=== PATIENT | male | born 1970 | race American Indian/Alaskan Native ===

== ENCOUNTER 2019-04-26 11:31 | Emergency (ER) | payer MEDICARE ==
--- NOTE | 2019-04-26 11:46 | Event Note ---
ED Screening Note Date of service: 04/26/19 Time: 11:43 ED Screening Note: This is a 48 y.o. M. that presents to the ER with suicidal thoughts and hearing voices. Reports having a plan to shot himself. PMH of schizoaffective disorder Current smoker This initial assessment/diagnostic orders/clinical plan/treatment(s) is/are subject to change based on patients health status, clinical progression and re- assessment by fellow clinical providers in the ED. Further treatment and workup at subsequent clinical providers discretion. Patient/guardian urged not to elope from the ED as their condition may be serious if not clinically assessed and managed. Initial orders include: Labs Main ED for further evaluation
[2019-04-26 12:15] LABS: Bilirubin,Urine NEG (Negative); Blood,Urine NEG (Negative); Color,Urine Yellow (Yellow); Mucus,Urine 3+ /HPF
[2019-04-26 12:22] LABS: Basophils % (Auto) 0.4 % (0.0-1.8); Eosinophils % (Auto) 0.4 % (0.0-4.3); Hematocrit 45.6 % (35.5-45.6); Hemoglobin 14.8 gm/dl (11.8-15.2); Lymphocytes # (Auto) 1.3 K/mm3 (1.2-5.4); Lymphocytes % (Auto) 25.7 % (13.4-35.0); Mean Corpuscular HGB Conc 32 % (32-34); Mean Corpuscular Volume 76 fl (84-94); Monocytes # (Auto) 0.4 K/mm3 (0.0-0.8); Monocytes % (Auto) 8.2 % (0.0-7.3); Platelet Count 225 K/mm3 (140-440); Red Blood Count 5.98 M/mm3 (3.65-5.03); Red Cell Distribution Width 16.8 % (13.2-15.2)
[2019-04-26 12:23] LABS: Amphetamine Screen,Urine PRESUMPTIVE NEGATIVE; Methadone Screen,Urine PRESUMPTIVE NEGATIVE; Opiate Screen,Urine PRESUMPTIVE NEGATIVE
[2019-04-26 12:37] LABS: BUN/Creatinine Ratio 15; Blood Urea Nitrogen 16 mg/dL (9-20); Calcium 9.2 mg/dL (8.4-10.2); Hemolysis Index 6
[2019-04-26 12:39] LABS: Benzodiazepines Screen,Urine PRESUMPTIVE POSITIVE; Cannabinoid Screen,Urine PRESUMPTIVE POSITIVE; Cocaine Screen,Urine PRESUMPTIVE POSITIVE
--- NOTE | 2019-04-26 12:50 | Emergency Department Report ---
HPI - General Chief Complaint: Psych Time Seen by Provider: 04/26/19 11:43 - HPI HPI: [facility] The patient is a 48-year-old male presented with a chief complaint auditory hallucination and suicidal ideation. The patient states she has a history of schizoaffective disorder and has always heard voices even while taking medication. Patient states his auditory hallucinations worsened over the past month. The patient states over the past couple days he has had suicidal ideation. Patient states his plan was to obtain a firearm and shooting himself. Patient denies any attempts at harming himself recently Location: Mental state Duration: [See above] Quality: Suicidal Severity: [See above] Modifying factors: [see above] Context: [see above] Mode of transportation: [not driving] ED Past Medical Hx - Past Medical History Previous Medical History?: Yes Hx Psychiatric Treatment: Yes (schizoaffective disorder, bipolar disorder) - Surgical History Past Surgical History?: No Additional Surgical History: Herniorrhaphy - Family History Family history: no significant - Social History Smoking Status: Current Every Day Smoker (occasional) Substance Use Type: Alcohol (occasional), Cocaine (last used 3 days ago) ED Review of Systems ROS: Stated complaint: SI Other details as noted in HPI Constitutional: no symptoms reported Eyes: denies: eye pain ENT: denies: throat pain Respiratory: no symptoms reported Cardiovascular: denies: chest pain Endocrine: no symptoms reported Gastrointestinal: denies: abdominal pain Genitourinary: denies: dysuria Musculoskeletal: denies: back pain Neurological: denies: headache Psychiatric: auditory hallucinations, suicidal thoughts Physical Exam - Physical Exam Vital Signs: Vital Signs 04/26/19 11:43 Temperature 98.6 F Pulse Rate 102 H Respiratory 16 Rate Blood Pressure 122/88 O2 Sat by Pulse 98 Oximetry Physical Exam: GENERAL: The patient is well-developed well-nourished male lying on stretcher not appearing to be in acute distress. [] HEENT: Normocephalic. Atraumatic. Extraocular motions are intact. Patient has moist mucous membranes. NECK: Supple. Trachea midline CHEST/LUNGS: Clear to auscultation. There is no respiratory distress noted. HEART/CARDIOVASCULAR: Regular. There is no tachycardia. There is no gallop rub or murmur. ABDOMEN: Abdomen is soft, nontender. Patient has normal bowel sounds. There is no abdominal distention. SKIN: There is no rash. There is no edema. There is no diaphoresis. NEURO: The patient is awake, alert, and oriented. The patient is cooperative. The patient has normal speech MUSCULOSKELETAL: There is no evidence of acute injury. ED Course Vital Signs 04/26/19 11:43 Temperature 98.6 F Pulse Rate 102 H Respiratory 16 Rate Blood Pressure 122/88 O2 Sat by Pulse 98 Oximetry ED Medical Decision Making - Lab Data Result diagrams: 04/26/19 12:05 04/26/19 12:05 Laboratory Tests 04/26/19 04/26/19 04/26/19 11:57 11:57 12:05 WBC RBC Hgb Hct MCV MCH MCHC RDW Plt Count Lymph % (Auto) [place] % (Auto) Eos % (Auto) Baso % (Auto) Lymph # [place] # Eos # Baso # Seg Neutrophils % Seg Neutrophils # Sodium Potassium Chloride Carbon Dioxide Anion Gap BUN Creatinine Estimated GFR BUN/Creatinine Ratio Glucose Calcium Urine Color Yellow Urine Turbidity Clear Urine pH 5.0 Ur Specific [place] 1.032 H Urine Protein 30 mg/dl Urine Glucose (UA) Neg Urine Ketones Tr Urine Blood Neg Urine Nitrite Neg Urine Bilirubin Neg Urine Urobilinogen 2.0 Ur Leukocyte Esterase Tr Urine WBC (Auto) 15.0 H Urine RBC (Auto) 3.0 Urine Mucus 3+ Salicylates < 0.3 L Urine Opiates Screen Presumptive negative Urine Methadone Screen Presumptive negative Acetaminophen Ur Barbiturates Screen Presumptive negative Ur Phencyclidine Scrn Presumptive negative Ur Amphetamines Screen Presumptive negative U Benzodiazepines Scrn Presumptive positive Urine Cocaine Screen Presumptive positive U Marijuana (THC) Screen Presumptive positive Drugs of Abuse Note Disclamer Plasma/Serum Alcohol 04/26/19 04/26/19 04/26/19 12:05 12:05 12:05 WBC RBC Hgb Hct MCV MCH MCHC RDW Plt Count Lymph % (Auto) [place] % (Auto) Eos % (Auto) Baso % (Auto) Lymph # [place] # Eos # Baso # Seg Neutrophils % Seg Neutrophils # Sodium 138 Potassium 3.5 L Chloride 101.0 Carbon Dioxide 21 L Anion Gap 20 BUN 16 Creatinine 1.1 Estimated GFR > 60 BUN/Creatinine Ratio 15 Glucose 189 H Calcium 9.2 Urine Color Urine Turbidity Urine pH Ur Specific [place] Urine Protein Urine Glucose (UA) Urine Ketones Urine Blood Urine Nitrite Urine Bilirubin Urine Urobilinogen Ur Leukocyte Esterase Urine WBC (Auto) Urine RBC (Auto) Urine Mucus Salicylates Urine Opiates Screen Urine Methadone Screen Acetaminophen < 5.0 L Ur Barbiturates Screen Ur Phencyclidine Scrn Ur Amphetamines Screen U Benzodiazepines Scrn Urine Cocaine Screen U Marijuana (THC) Screen Drugs of Abuse Note Plasma/Serum Alcohol 0.06 04/26/19 12:05 WBC 4.9 RBC 5.98 H Hgb 14.8 Hct 45.6 MCV 76 L MCH 25 L MCHC 32 RDW 16.8 H Plt Count 225 Lymph % (Auto) 25.7 [place] % (Auto) 8.2 H Eos % (Auto) 0.4 Baso % (Auto) 0.4 Lymph # 1.3 [place] # 0.4 Eos # 0.0 Baso # 0.0 Seg Neutrophils % 65.3 Seg Neutrophils # 3.2 Sodium Potassium Chloride Carbon Dioxide Anion Gap BUN Creatinine Estimated GFR BUN/Creatinine Ratio Glucose Calcium Urine Color Urine Turbidity Urine pH Ur Specific [place] Urine Protein Urine Glucose (UA) Urine Ketones Urine Blood Urine Nitrite Urine Bilirubin Urine Urobilinogen Ur Leukocyte Esterase Urine WBC (Auto) Urine RBC (Auto) Urine Mucus Salicylates Urine Opiates Screen Urine Methadone Screen Acetaminophen Ur Barbiturates Screen Ur Phencyclidine Scrn Ur Amphetamines Screen U Benzodiazepines Scrn Urine Cocaine Screen U Marijuana (THC) Screen Drugs of Abuse Note Plasma/Serum Alcohol - Differential Diagnosis suicidal ideation, auditory hallucinations Critical care attestation.: If time is entered above; I have spent that time in minutes in the direct care of this critically ill patient, excluding procedure time. ED Disposition Clinical Impression: Suicidal ideation, Auditory hallucinations Disposition: DC/TX-65 PSY HOSP/PSY UNIT Is pt being admited?: No Does the pt Need Aspirin: No Condition: Serious Time of Disposition: 12:54 (awaiting acceptance)
[2019-04-26] MEDS ORDERED: K-DUR PO ONE (12:53)
[2019-04-26] MEDS ORDERED: LEVAQUIN PO SCH (13:00)
[2019-04-26 20:55] VITALS: BP 115/71
== END 2019-04-26 22:05 ==
LOC: ED 11:31 → EEVIPCON 11:31 → ED 22:05
DX: F25.9 Schizoaffective disorder, unspecified (principal); F31.9 Bipolar disorder, unspecified; R45.851 Suicidal ideations; F17.200 Nicotine dependence, unspecified, uncomplicated; F14.10 Cocaine abuse, uncomplicated
CPT/HCPCS: 36415; 80048; 80307; 80320; 81001; 85025; 87086; 99285; G0480

== ENCOUNTER 2019-07-30 10:43 | Emergency (ER) | payer MEDICARE ==
[2019-07-30 11:32] LABS: Basophils # (Auto) 0.1 K/mm3 (0.0-0.1); Basophils % (Auto) 0.9 % (0.0-1.8); Hematocrit 49.9 % (35.5-45.6); Hemoglobin 15.8 gm/dl (11.8-15.2); Lymphocytes # (Auto) 1.9 K/mm3 (1.2-5.4); Lymphocytes % (Auto) 19.8 % (13.4-35.0); Mean Corpuscular HGB Conc 32 % (32-34); Mean Corpuscular Volume 77 fl (84-94); Monocytes # (Auto) 0.7 K/mm3 (0.0-0.8); Monocytes % (Auto) 6.9 % (0.0-7.3); Platelet Count 202 K/mm3 (140-440); Red Blood Count 6.45 M/mm3 (3.65-5.03)
[2019-07-30 12:10] LABS: Bilirubin,Urine NEG (Negative); Blood,Urine SM (Negative); Color,Urine Straw (Yellow); Mucus,Urine FEW /HPF; Protein,Urine <15 mg/dL mg/dL (Negative); Urobilinogen,Urine < 2.0 mg/dL (<2.0); WBC,Urine < 1.0 /HPF (0.0-6.0)
[2019-07-30 12:16] LABS: BUN/Creatinine Ratio 14; Blood Urea Nitrogen 14 mg/dL (9-20); Calcium 9.9 mg/dL (8.4-10.2); Hemolysis Index 9
[2019-07-30 12:22] LABS: Amphetamine Screen,Urine PRESUMPTIVE NEGATIVE; Benzodiazepines Screen,Urine PRESUMPTIVE NEGATIVE; Cannabinoid Screen,Urine PRESUMPTIVE NEGATIVE; Methadone Screen,Urine PRESUMPTIVE NEGATIVE; Opiate Screen,Urine PRESUMPTIVE NEGATIVE
[2019-07-30 12:37] LABS: Cocaine Screen,Urine PRESUMPTIVE POSITIVE
[2019-07-30] MEDS ORDERED: ACETAMINOPHEN 325 MG TAB PO ONE (13:07)
--- NOTE | 2019-07-30 13:28 | Emergency Department Report ---
ED General Adult HPI - General Chief complaint: Psych Stated complaint: SI Time Seen by Provider: 07/30/19 11:17 Source: patient Mode of arrival: Ambulatory Limitations: No Limitations - History of Present Illness Initial comments: The Patient presents to the emergency department with a chief complaint of hearing voices. She states she has a history of schizophrenia and is taking his medications as prescribed. He states over the last couple of days the voices have been telling him to kill himself and last night he had a gun to his head. -: Gradual Severity scale (0 -10): 0 Consistency: constant Improves with: none Worsens with: none Associated Symptoms: denies other symptoms Treatments Prior to Arrival: none - Related Data Allergies Allergy/AdvReac Type Severity Reaction Status Date / Time No Known Allergies Allergy Unverified 04/26/19 11:32 ED Review of Systems ROS: Stated complaint: SI Other details as noted in HPI Constitutional: denies: chills, fever Eyes: denies: eye pain, eye discharge, vision change ENT: denies: ear pain, throat pain Respiratory: denies: cough, shortness of breath, wheezing Cardiovascular: denies: chest pain, palpitations Endocrine: no symptoms reported Gastrointestinal: denies: abdominal pain, nausea, diarrhea Genitourinary: denies: urgency, dysuria Musculoskeletal: denies: back pain, joint swelling, arthralgia Skin: denies: rash, lesions Neurological: denies: headache, weakness, paresthesias Psychiatric: suicidal thoughts. denies: anxiety, depression Hematological/Lymphatic: denies: easy bleeding, easy bruising ED Past Medical Hx - Past Medical History Previous Medical History?: Yes Hx Hypertension: Yes Hx Psychiatric Treatment: Yes (schizoaffective disorder, bipolar disorder) - Surgical History Past Surgical History?: Yes Additional Surgical History: Herniorrhaphy - Social History Smoking Status: Current Every Day Smoker Substance Use Type: Alcohol ED Physical Exam - General Limitations: No Limitations General appearance: alert, in no apparent distress - Head Head exam: Present: atraumatic, normocephalic - Eye Eye exam: Present: normal appearance, PERRL, EOMI - ENT ENT exam: Present: mucous membranes moist - Neck Neck exam: Present: normal inspection - Respiratory Respiratory exam: Present: normal lung sounds bilaterally. Absent: respiratory distress - Cardiovascular Cardiovascular Exam: Present: regular rate, normal rhythm. Absent: systolic murmur, diastolic murmur, rubs, gallop - GI/Abdominal GI/Abdominal exam: Present: soft, normal bowel sounds. Absent: distended, tenderness - Rectal Rectal exam: Present: deferred - Extremities Exam Extremities exam: Present: normal inspection - Back Exam Back exam: Present: normal inspection - Neurological Exam Neurological exam: Present: alert, oriented X3, CN II-XII intact. Absent: motor sensory deficit - Psychiatric Psychiatric exam: Present: normal affect, normal mood, suicidal ideation - Skin Skin exam: Present: warm, dry, intact, normal color. Absent: rash ED Course Vital Signs 07/30/19 07/30/19 07/30/19 10:53 11:24 11:25 Temperature 97.5 F L 98.4 F Pulse Rate 92 H 96 H Respiratory 16 17 17 Rate Blood Pressure 140/99 Blood Pressure 131/97 [Left] O2 Sat by Pulse 97 96 96 Oximetry ED Medical Decision Making - Lab Data Result diagrams: 07/30/19 11:14 07/30/19 11:14 1013 placed Medically cleared Critical care attestation.: If time is entered above; I have spent that time in minutes in the direct care of this critically ill patient, excluding procedure time. ED Disposition Clinical Impression: Suicidal behavior Disposition: DC/TX-65 PSY HOSP/PSY UNIT Is pt being admited?: No Does the pt Need Aspirin: No Condition: Stable
[2019-07-31 14:01] VITALS: BP 143/93
== END 2019-07-31 21:46 ==
LOC: EEVIPCON 10:43 → ED 10:43
DX: F25.9 Schizoaffective disorder, unspecified (principal); F31.9 Bipolar disorder, unspecified; I10 Essential (primary) hypertension; F17.200 Nicotine dependence, unspecified, uncomplicated
CPT/HCPCS: 36415; 80048; 80307; 80320; 81001; 85025; 99285; G0480

== ENCOUNTER 2019-10-22 07:46 | Emergency (ER) | payer MEDICARE ==
[2019-10-22 08:50] LABS: Basophils % (Auto) 0.5 % (0.0-1.8); Eosinophils % (Auto) 0.2 % (0.0-4.3); Hematocrit 46.8 % (35.5-45.6); Hemoglobin 14.8 gm/dl (11.8-15.2); Lymphocytes # (Auto) 1.4 K/mm3 (1.2-5.4); Lymphocytes % (Auto) 22.3 % (13.4-35.0); Mean Corpuscular HGB Conc 32 % (32-34); Mean Corpuscular Volume 77 fl (84-94); Monocytes # (Auto) 0.5 K/mm3 (0.0-0.8); Monocytes % (Auto) 7.9 % (0.0-7.3); Platelet Count 215 K/mm3 (140-440); Red Blood Count 6.07 M/mm3 (3.65-5.03); Red Cell Distribution Width 17.5 % (13.2-15.2)
[2019-10-22 09:09] LABS: BUN/Creatinine Ratio 17; Blood Urea Nitrogen 17 mg/dL (9-20); Calcium 9.4 mg/dL (8.4-10.2); Hemolysis Index 4
[2019-10-22] MEDS ORDERED: LISINOPRIL 20 MG TAB PO ONE (10:40)
--- NOTE | 2019-10-22 10:42 | Emergency Department Report ---
ED Psych HPI - General Chief Complaint: Psych Stated Complaint: SI IDEATION/HEARING VOICES Time Seen by Provider: 10/22/19 10:33 Source: patient Mode of arrival: Ambulatory - History of Present Illness Initial Comments: 49 YO AA male comes to ER with complaints of Auditory [place] with plan to shoot himself. He tells me he held a gun to his head. He told me the gun was with family - this is after he told me he had no local family. When asked to clarify - he stated it is with friends. I asked if it was at snf where he told me he lives and he said no. Pos psychomotor agitation- rocking and twirling thumbs. Cooperative Suppose to be on lisinopril, effexor, and seroquel- he is not taking them because he can not afford them. He last had them "wwkes ago." Pt lives in snf He is but he is estranged from his - he had no idea where she is He has 2 kids that live with his sister out of state. The kids are 14 and 16 His mother and father are Occ ETOH Pos cig PMH schizo- previous hosp and Suicide attempt; 1 y ago per pt HTN HLD PSH denies MD Complaint: suicidal ideation -: hour(s) Associated Psychiatric Symptoms: suicidal ideation History of same: Yes Quality: constant Improves With: none Worsens With: other (not taking meds) Context: not taking psychiatric Associated Symptoms: denies other symptoms Treatments Prior to Arrival: none If Self Harm: admits thoughts of, has plan, has acted on plan - Related Data Home Medications Medication Instructions Recorded Confirmed Last Taken Citalopram Hydrobromide [Celexa] 40 mg PO DAILY 07/30/19 07/30/19 Unknown Quetiapine Fumarate [SEROquel] 400 mg PO DAILY 07/30/19 07/30/19 Unknown Allergies Allergy/AdvReac Type Severity Reaction Status Date / Time No Known Allergies Allergy Unverified 04/26/19 11:32 ED Review of Systems ROS: Stated complaint: SI IDEATION/HEARING VOICES Other details as noted in HPI Comment: All other systems reviewed and negative ED Past Medical Hx - Past Medical History Previous Medical History?: Yes Hx Hypertension: Yes Hx Psychiatric Treatment: Yes (schizoaffective disorder, bipolar disorder) - Surgical History Past Surgical History?: Yes Additional Surgical History: hernia repair - Family History Family history: no significant - Social History Smoking Status: Current Every Day Smoker Substance Use Type: Alcohol - Medications Home Medications: Home Medications Medication Instructions Recorded Confirmed Last Taken Type Citalopram Hydrobromide [Celexa] 40 mg PO DAILY 07/30/19 07/30/19 Unknown History Quetiapine Fumarate [SEROquel] 400 mg PO DAILY 07/30/19 07/30/19 Unknown History ED Physical Exam - General Limitations: No Limitations General appearance: alert, in no apparent distress - Head Head exam: Present: atraumatic, normocephalic - Eye Eye exam: Present: normal appearance - ENT ENT exam: Present: mucous membranes moist - Neck Neck exam: Present: normal inspection - Respiratory Respiratory exam: Present: normal lung sounds bilaterally. Absent: respiratory distress - Cardiovascular Cardiovascular Exam: Present: regular rate, normal rhythm. Absent: systolic murmur, diastolic murmur, rubs, gallop - GI/Abdominal GI/Abdominal exam: Present: soft, normal bowel sounds - Rectal Rectal exam: Present: deferred - Extremities Exam Extremities exam: Present: normal inspection - Back Exam Back exam: Present: normal inspection - Neurological Exam Neurological exam: Present: alert, oriented X3 - Psychiatric Psychiatric exam: Present: agitated, anxious, suicidal ideation - Expanded Psychiatric Exam Expanded Focused psych exam: Present: psychomotor agitation, restlessness - Skin Skin exam: Present: warm, dry, intact, normal color. Absent: rash ED Course Vital Signs 10/22/19 07:50 Temperature 99.2 F Pulse Rate 98 H Respiratory 18 Rate Blood Pressure 157/102 O2 Sat by Pulse 97 Oximetry ED Medical Decision Making - Lab Data Result diagrams: 10/22/19 07:56 10/22/19 07:56 - Medical Decision Making Lab Results 10/22/19 10/22/19 10/22/19 Range/Units 07:56 07:56 07:56 WBC (4.5-11.0) K/mm3 RBC (3.65-5.03) M/mm3 Hgb (11.8-15.2) gm/dl Hct (35.5-45.6) % MCV (84-94) fl MCH (28-32) pg MCHC (32-34) % RDW (13.2-15.2) % Plt Count (140-440) K/mm3 Lymph % (Auto) (13.4-35.0) % [place] % (Auto) (0.0-7.3) % Eos % (Auto) (0.0-4.3) % Baso % (Auto) (0.0-1.8) % Lymph # (1.2-5.4) K/mm3 [place] # (0.0-0.8) K/mm3 Eos # (0.0-0.4) K/mm3 Baso # (0.0-0.1) K/mm3 Seg Neutrophils % (40.0-70.0) % Seg Neutrophils # (1.8-7.7) K/mm3 Sodium 135 L (137-145) mmol/L Potassium 4.4 (3.6-5.0) mmol/L Chloride 98.4 (98-107) mmol/L Carbon Dioxide 17 L (22-30) mmol/L Anion Gap 24 mmol/L BUN 17 (9-20) mg/dL Creatinine 1.0 (0.8-1.5) mg/dL Estimated GFR > 60 ml/min BUN/Creatinine Ratio 17 % Glucose 70 L (75-100) mg/dL Calcium 9.4 (8.4-10.2) mg/dL Salicylates < 0.3 L (2.8-20.0) mg/dL Acetaminophen < 5.0 L (10.0-30.0) ug/mL Plasma/Serum Alcohol (0-0.07) % 10/22/19 10/22/19 Range/Units 07:56 07:56 WBC 6.1 (4.5-11.0) K/mm3 RBC 6.07 H (3.65-5.03) M/mm3 Hgb 14.8 (11.8-15.2) gm/dl Hct 46.8 H (35.5-45.6) % MCV 77 L (84-94) fl MCH 25 L (28-32) pg MCHC 32 (32-34) % RDW 17.5 H (13.2-15.2) % Plt Count 215 (140-440) K/mm3 Lymph % (Auto) 22.3 (13.4-35.0) % [place] % (Auto) 7.9 H (0.0-7.3) % Eos % (Auto) 0.2 (0.0-4.3) % Baso % (Auto) 0.5 (0.0-1.8) % Lymph # 1.4 (1.2-5.4) K/mm3 [place] # 0.5 (0.0-0.8) K/mm3 Eos # 0.0 (0.0-0.4) K/mm3 Baso # 0.0 (0.0-0.1) K/mm3 Seg Neutrophils % 69.1 (40.0-70.0) % Seg Neutrophils # 4.2 (1.8-7.7) K/mm3 Sodium (137-145) mmol/L Potassium (3.6-5.0) mmol/L Chloride (98-107) mmol/L Carbon Dioxide (22-30) mmol/L Anion Gap mmol/L BUN (9-20) mg/dL Creatinine (0.8-1.5) mg/dL Estimated GFR ml/min BUN/Creatinine Ratio % Glucose (75-100) mg/dL Calcium (8.4-10.2) mg/dL Salicylates (2.8-20.0) mg/dL Acetaminophen (10.0-30.0) ug/mL Plasma/Serum Alcohol < 0.01 (0-0.07) % Vital Signs 10/22/19 07:50 Temperature 99.2 F Pulse Rate 98 H Respiratory 18 Rate Blood Pressure 157/102 O2 Sat by Pulse 97 Oximetry 1100 Medical clearance for [facility] has seen pt - awaiting placement lisinopril 20 mg every day per home routine follow blood pressure and continue lisinopril on dc to [facility] PLAN 1110 u/a pending placement pending 1230 Admit to inpt unit here at [facility] per psych- see note MEDICALLY CLEARED FOR ADMIT - Differential Diagnosis SI Critical care attestation.: If time is entered above; I have spent that time in minutes in the direct care of this critically ill patient, excluding procedure time. ED Disposition Clinical Impression: History of hypertension, Suicidal ideations, Schizo-affective schizophrenia Disposition: OP ADMIT IP TO THIS HOSP Is pt being admited?: Yes Does the pt Need Aspirin: No Condition: Stable Time of Disposition: 11:06
[2019-10-22 15:48] LABS: Bacteria,Urine 1+ /HPF (Negative); Bilirubin,Urine NEG (Negative); Blood,Urine NEG (Negative); Color,Urine Yellow (Yellow); Mucus,Urine 3+ /HPF
[2019-10-22 15:54] LABS: Amphetamine Screen,Urine PRESUMPTIVE NEGATIVE; Benzodiazepines Screen,Urine PRESUMPTIVE NEGATIVE; Methadone Screen,Urine PRESUMPTIVE NEGATIVE; Opiate Screen,Urine PRESUMPTIVE NEGATIVE
[2019-10-22 15:56] VITALS: BP 120/87
[2019-10-22 16:10] LABS: Cannabinoid Screen,Urine PRESUMPTIVE POSITIVE; Cocaine Screen,Urine PRESUMPTIVE POSITIVE
== END 2019-10-22 16:04 | disposition admitted as inpatient to this hospital (09) ==
LOC: ED 07:46
DX: F25.0 Schizoaffective disorder, bipolar type (principal); I10 Essential (primary) hypertension; F17.200 Nicotine dependence, unspecified, uncomplicated; Z79.899 Other long term (current) drug therapy
CPT/HCPCS: 36415; 80048; 80307; 80320; 81001; 85025; G0480

== ENCOUNTER 2019-11-22 20:49 | Emergency (ER) | payer MEDICARE ==
[2019-11-22 21:30] LABS: Bacteria,Urine 1+ /HPF (Negative); Bilirubin,Urine NEG (Negative); Blood,Urine NEG (Negative); Color,Urine Yellow (Yellow); Hyaline Casts,Urine 1 /LPF; Mucus,Urine 2+ /HPF; Urobilinogen,Urine < 2.0 mg/dL (<2.0)
--- NOTE | 2019-11-22 21:34 | Emergency Department Report ---
ED Psych HPI - General Chief Complaint: Psych Stated Complaint: MH/SI Time Seen by Provider: 11/22/19 21:19 Source: patient Mode of arrival: Ambulatory - History of Present Illness MD Complaint: suicidal ideation -: Gradual (3), hour(s) Associated Psychiatric Symptoms: suicidal ideation, auditory hallucinations, visual hallucinations History of same: Yes Quality: intermittent Improves With: medication Worsens With: none Context: not taking psychiatric Associated Symptoms: denies other symptoms Treatments Prior to Arrival: none If Self Harm: admits thoughts of, has plan - Related Data Previous Rx's Medication Instructions Recorded Last Taken Type Citalopram Hydrobromide [Celexa] 40 mg PO DAILY #30 10/29/[address] [Depitalo Foster] 125 mg PO BID #60 tablet 10/29/19 Unknown Rx Doxepin [SINEquan] 10 mg PO QHS #30 capsule 10/29/19 Unknown Rx Quetiapine Fumarate [SEROquel] 600 mg PO DAILY #30 10/29/19 Unknown Rx risperiDONE [RisperDAL] 1 mg PO DAILY #30 tablet 10/29/19 Unknown Rx Allergies Allergy/AdvReac Type Severity Reaction Status Date / Time No Known Allergies Allergy Unverified 04/26/19 11:32 ED Review of Systems ROS: Stated complaint: MH/SI Other details as noted in HPI Comment: All other systems reviewed and negative ED Past Medical Hx - Past Medical History Previous Medical History?: Yes Hx Hypertension: Yes Hx Psychiatric Treatment: Yes (schizoaffective disorder, bipolar disorder) - Surgical History Past Surgical History?: Yes Additional Surgical History: hernia repair - Social History Smoking Status: Current Every Day Smoker Substance Use Type: Alcohol, Cocaine, Marijuana - Medications Home Medications: Home Medications Medication Instructions Recorded Confirmed Last Taken Type Citalopram Hydrobromide [Celexa] 40 mg PO DAILY #30 10/29/[address] [Depnikhilte ] 125 mg PO BID #60 tablet 10/29/19 Unknown Rx Doxepin [SINEquan] 10 mg PO QHS #30 capsule 10/29/19 Unknown Rx Quetiapine Fumarate [SEROquel] 600 mg PO DAILY #30 10/29/19 Unknown Rx risperiDONE [RisperDAL] 1 mg PO DAILY #30 tablet 10/29/19 Unknown Rx ED Physical Exam - General Limitations: No Limitations General appearance: alert, in no apparent distress - Head Head exam: Present: atraumatic, normocephalic - Eye Eye exam: Present: normal appearance Pupils: Present: normal accommodation - ENT ENT exam: Present: mucous membranes moist - Neck Neck exam: Present: normal inspection - Respiratory Respiratory exam: Present: normal lung sounds bilaterally. Absent: respiratory distress - Cardiovascular Cardiovascular Exam: Present: regular rate, normal rhythm. Absent: systolic murmur, diastolic murmur, rubs, gallop - GI/Abdominal GI/Abdominal exam: Present: soft, normal bowel sounds - Rectal Rectal exam: Present: deferred - Extremities Exam Extremities exam: Present: normal inspection - Back Exam Back exam: Present: normal inspection - Neurological Exam Neurological exam: Present: alert, oriented X3 - Psychiatric Psychiatric exam: Present: normal affect, normal mood - Skin Skin exam: Present: warm, dry, intact, normal color. Absent: rash ED Course Vital Signs 11/22/19 20:53 Temperature 99.0 F Pulse Rate 109 H Respiratory 18 Rate Blood Pressure 139/105 O2 Sat by Pulse 96 Oximetry Critical care attestation.: If time is entered above; I have spent that time in minutes in the direct care of this critically ill patient, excluding procedure time. ED Disposition Condition: Stable
[2019-11-22 21:36] LABS: Amphetamine Screen,Urine PRESUMPTIVE NEGATIVE; Benzodiazepines Screen,Urine PRESUMPTIVE NEGATIVE; Methadone Screen,Urine PRESUMPTIVE NEGATIVE; Opiate Screen,Urine PRESUMPTIVE NEGATIVE
[2019-11-22 21:50] LABS: Cannabinoid Screen,Urine PRESUMPTIVE POSITIVE; Cocaine Screen,Urine PRESUMPTIVE POSITIVE
[2019-11-22 21:59] LABS: BUN/Creatinine Ratio 14; Blood Urea Nitrogen 14 mg/dL (9-20); Hemolysis Index 4
[2019-11-22 22:01] LABS: Basophils % (Auto) 0.3 % (0.0-1.8); Eosinophils % (Auto) 0.3 % (0.0-4.3); Hematocrit 48.1 % (35.5-45.6); Hemoglobin 15.4 gm/dl (11.8-15.2); Lymphocytes # (Auto) 2.4 K/mm3 (1.2-5.4); Lymphocytes % (Auto) 28.5 % (13.4-35.0); Mean Corpuscular HGB Conc 32 % (32-34); Mean Corpuscular Volume 76 fl (84-94); Monocytes # (Auto) 0.6 K/mm3 (0.0-0.8); Monocytes % (Auto) 6.6 % (0.0-7.3); Platelet Count 222 K/mm3 (140-440); Red Blood Count 6.32 M/mm3 (3.65-5.03); Red Cell Distribution Width 17.3 % (13.2-15.2)
[2019-11-23] MEDS ORDERED: LISINOPRIL 20 MG TAB PO SCH (19:00)
[2019-11-23] MEDS ORDERED: LISINOPRIL 20 MG TAB ONE (21:58)
[2019-11-23] MEDS ORDERED: GABAPENTIN 300 MG CAP ONE (21:59)
[2019-11-23] MEDS ORDERED: GABAPENTIN 300 MG CAP PO SCH (22:00)
[2019-11-24 01:50] VITALS: BP 123/94
[2019-11-24] MEDS ORDERED: QUETIAPINE FUMARATE PO SCH (10:00)
== END 2019-11-24 05:06 ==
LOC: ED 20:49 → 5A 11-23 14:50 → UNDOADMIN 11-23 14:50 → ED 11-24 05:06
DX: R45.851 Suicidal ideations (principal); I10 Essential (primary) hypertension; F25.0 Schizoaffective disorder, bipolar type; F12.90 Cannabis use, unspecified, uncomplicated; F17.200 Nicotine dependence, unspecified, uncomplicated; F14.90 Cocaine use, unspecified, uncomplicated; Z98.890 Other specified postprocedural states; Z79.899 Other long term (current) drug therapy
CPT/HCPCS: 36415; 80048; 80307; 80320; 81001; 85025; G0480

== ENCOUNTER 2020-05-15 13:54 | Inpatient (IN) | payer MEDICARE ==
--- NOTE | 2020-05-15 14:18 | Emergency Department Report ---
HPI - General Chief Complaint: Altered Mental Status Time Seen by Provider: 05/15/20 14:10 - HPI HPI: This is a 49-year-old -Thai male presents to the emergency department with the complaint of a possible overdose on 6 unidentified pills. The patient admits to taking these medications in order to harm himself as he has been having suicidal ideations. The patient has been having auditory hallucinations telling him to harm himself. He does have a known history of schizophrenia and says that he is compliant with his Seroquel. He says that the pills he ingested were not his own and they were from "some tarun." He ingested the pills sometime earlier this morning. At this time, the patient's only physical complaint is feeling fatigued. He is currently awake and oriented, AAO x3. ED Past Medical Hx - Past Medical History Hx Hypertension: Yes Hx Psychiatric Treatment: Yes (schizoaffective disorder, bipolar disorder) - Surgical History Additional Surgical History: hernia repair - Social History Smoking Status: Current Every Day Smoker Substance Use Type: Alcohol, Cocaine, Marijuana - Medications Home Medications: Home Medications Medication Instructions Recorded Confirmed Last Taken Type Gabapentin [Neurontin] 300 mg PO Q8HR 11/22/19 11/22/19 Unknown History Quetiapine Fumarate [SEROquel] 1 mg PO DAILY 11/22/19 11/22/19 Unknown History lisinopriL [Zestril] 20 mg PO QDAY 11/22/19 11/22/19 Unknown History ED Review of Systems ROS: Stated complaint: SUICIDAL HEARING VOICES Other details as noted in HPI Constitutional: other (fatigued). denies: malaise Eyes: denies: eye pain, vision change ENT: denies: ear pain, throat pain Respiratory: denies: cough, shortness of breath Cardiovascular: denies: chest pain, palpitations Gastrointestinal: denies: abdominal pain, vomiting Genitourinary: denies: dysuria, discharge Musculoskeletal: denies: back pain, arthralgia Neurological: denies: headache, weakness Psychiatric: auditory hallucinations, suicidal thoughts Physical Exam - Physical Exam Vital Signs: Vital Signs 05/15/20 13:58 Temperature 98 F Pulse Rate 107 H Respiratory 20 Rate Blood Pressure 160/100 [Left] O2 Sat by Pulse 98 Oximetry Physical Exam: GENERAL: The patient is well-developed well-nourished. HENT: Normocephalic. Atraumatic. Patient has moist mucous membranes. EYES: Extraocular motions are intact. NECK: Supple. Trachea is midline. CHEST/LUNGS: Clear to auscultation. There is no respiratory distress noted. HEART/CARDIOVASCULAR: Regular. There is no tachycardia. There is no murmur. ABDOMEN: Abdomen is soft, nontender. Patient has normal bowel sounds. SKIN: Skin is warm and dry. NEURO: The patient is awake, alert, and oriented. The patient is cooperative. Cranial nerves II through XII grossly intact. Normal speech. MUSCULOSKELETAL: There is no tenderness or deformity. ED Course Vital Signs 05/15/20 13:58 Temperature 98 F Pulse Rate 107 H Respiratory 20 Rate Blood Pressure 160/100 [Left] O2 Sat by Pulse 98 Oximetry ED Medical Decision Making - Lab Data Result diagrams: 05/15/20 14:48 05/15/20 14:48 - Medical Decision Making This patient presents to the emergency department with complaint of auditory hallucinations that are command hallucinations telling him to harm himself. He presents with an alleged suicide attempt in which he took 6 pills of unknown identification earlier this morning. Patient does not appear acutely intoxicated. His vital signs have been reassuring including being afebrile. His labs show elevated liver enzymes and a blood alcohol level of 0.08 which is right at the legal limit. UDS is also positive for cocaine. Patient has been made a 1013 secondary to the hallucinations, suicidal ideations and attempt. He appears medically cleared for psychiatric placement. Critical Care Time: No Critical care attestation.: If time is entered above; I have spent that time in minutes in the direct care of this critically ill patient, excluding procedure time. ED Disposition Clinical Impression: Medical clearance for psychiatric admission, Cocaine use Suicide attempt by drug ingestion Qualifiers: Encounter type: initial encounter Qualified Code(s): T50.902A - Poisoning by unspecified drugs, medicaments and biological substances, intentional self-harm, initial encounter Disposition: [id number] PSY HOSP/PSY UNIT Is pt being admited?: No Condition: Stable Referrals: PRIMARY CARE, [Primary Care Provider] - 3-5 Days Time of Disposition: 18:24
[2020-05-15 15:09] LABS: Basophils % (Auto) 0.5 % (0.0-1.8); Eosinophils % (Auto) 0.2 % (0.0-4.3); Hematocrit 46.4 % (35.5-45.6); Hemoglobin 14.8 gm/dl (11.8-15.2); Lymphocytes # (Auto) 1.4 K/mm3 (1.2-5.4); Lymphocytes % (Auto) 14.7 % (13.4-35.0); Mean Corpuscular HGB Conc 32 % (32-34); Mean Corpuscular Volume 78 fl (84-94); Monocytes # (Auto) 0.5 K/mm3 (0.0-0.8); Monocytes % (Auto) 5.7 % (0.0-7.3); Platelet Count 197 K/mm3 (140-440); Red Blood Count 5.97 M/mm3 (3.65-5.03); Red Cell Distribution Width 16.8 % (13.2-15.2)
[2020-05-15 15:30] LABS: Alanine Aminotransferase 80 units/L (7-56); Albumin 4.1 g/dL (3.9-5); BUN/Creatinine Ratio 15; Blood Urea Nitrogen 16 mg/dL (9-20); Calcium 9.6 mg/dL (8.4-10.2); Hemolysis Index 6
[2020-05-15 16:08] LABS: Bilirubin,Urine NEG (Negative); Blood,Urine NEG (Negative); Color,Urine Yellow (Yellow); Mucus,Urine FEW /HPF; RBC,Urine < 1.0 /HPF (0.0-6.0); Urobilinogen,Urine < 2.0 mg/dL (<2.0)
[2020-05-15 16:17] LABS: Amphetamine Screen,Urine Negative; Benzodiazepines Screen,Urine Negative; Cannabinoid Screen,Urine Negative; Methadone Screen,Urine Negative; Opiate Screen,Urine Negative
[2020-05-15 16:58] LABS: Cocaine Screen,Urine Positive
[2020-05-15] MEDS ORDERED: IBUPROFEN 600 MG TAB PO ONE ×2 (19:50→19:52)
--- NOTE | 2020-05-16 11:13 | Consultation ---
History of Present Illness - Reason for Consult Consult date: 05/16/20 Reason for consult: SI - History of Present Psychiatric Illness Florentin Sanchez is a 49y/o male patient who presented to the ER with suicidal ideation and hallucinations. He says he "took some pills." During my interview with the patient today, he is lying in bed asleep. He is reluctant to cooperate. He is not forthcoming. He is irritable. He says "I'm not doing good," when asked. The patient is oriented x 3. The patient says he's "depressed and hearing voices telling me to kill myself." He says he's "not sleeping good." He states he's "been off his meds for 2 days." The patient becomes upset when I ask him about illicit drug use. He initially states "I don't know. I'm sleeping." After asking him again the patient states, "yea, crack. I had a relapse." He says he drinks alcohol "6 pack per day." He says he's been admitted "several times." The patient would not answer when asking about his medications. He states, "I haven't even had breakfast yet. Do yall feed people." PAST PSYCHIATRIC HISTORY: Diagnoses: schizoaffective disorder Suicide attempts or Self-harm behavior: no Prior psychiatric hospitalizations: yes Substance Abuse history: Crack Previous psychiatric medications tried: yes Outpatient treatment: yes PAST MEDICAL HISTORY: None reported Family Psychiatric History: None reported or documented SOCIAL HISTORY Marital Status: Single Living Arrangements: Alone Employment Status: Unemployed Access to guns/weapons: Denies Education: High school History of Abuse: Denies Legal History: Denies MSE Appearance: Wearing appropriate clothing. Behavior: Irritable, not forthcoming Mood: "not good" Affect: Congruent with stated mood Thought Process: Goal directed Speech: normal tone and pace Thought Content Suicidal: Yes Homicidal: Denies Hallucinations: Auditory Delusions: none elicited Consciousness: alert. Cognition/Memory: normal. Insight/Judgment: Limited. Diagnoses: schizoaffective disorder Cocaine Use Disorder Substance Induced Mood Disorder Treatment Plan Assess CIWA Start Risperidone 0.25mg po BID Start Trazodone 50mg po qhs Start Melatonin 5mg po qhs prn insomnia Start Geodon 20mg IM q6h prn agitation Sitter: Defer to primary Medical Per primary Disposition: The patient meets the requirement for acute inpatient psychiatric treatment. Will follow. Thank you for this consult. Medications and Allergies Allergies Allergy/AdvReac Type Severity Reaction Status Date / Time No Known Allergies Allergy Unverified 04/26/19 11:32 Home Medications Medication Instructions Recorded Confirmed Last Taken Type Gabapentin [Neurontin] 300 mg PO Q8HR 11/22/19 11/22/19 Unknown History Quetiapine Fumarate [SEROquel] 1 mg PO DAILY 11/22/19 11/22/19 Unknown History lisinopriL [Zestril] 20 mg PO QDAY 11/22/19 11/22/19 Unknown History Mental Status Exam - Vital signs Last Vital Signs Temp 98.2 F 05/15/20 14:11 Pulse 110 H 05/15/20 16:45 Resp 18 05/15/20 19:54 BP 128/89 05/15/20 16:45 Pulse Ox 94 05/15/20 16:45 Results Result Diagrams: 05/15/20 14:48 05/15/20 14:48 Abnormal lab results 05/15/20 05/15/20 05/15/20 Range/Units 14:48 14:48 14:48 RBC 5.97 H (3.65-5.03) M/mm3 Hct 46.4 H (35.5-45.6) % MCV 78 L (84-94) fl MCH 25 L (28-32) pg RDW 16.8 H (13.2-15.2) % Seg Neutrophils % 78.9 H (40.0-70.0) % Sodium 136 L (137-145) mmol/L Carbon Dioxide 18 L (22-30) mmol/L AST 171 H (5-40) units/L ALT 80 H (7-56) units/L Salicylates < 0.3 L (2.8-20.0) mg/dL Acetaminophen (10.0-30.0) ug/mL Plasma/Serum Alcohol (0-0.07) % 05/15/20 05/15/20 Range/Units 14:48 14:48 RBC (3.65-5.03) M/mm3 Hct (35.5-45.6) % MCV (84-94) fl MCH (28-32) pg RDW (13.2-15.2) % Seg Neutrophils % (40.0-70.0) % Sodium (137-145) mmol/L Carbon Dioxide (22-30) mmol/L AST (5-40) units/L ALT (7-56) units/L Salicylates (2.8-20.0) mg/dL Acetaminophen 5.0 L (10.0-30.0) ug/mL Plasma/Serum Alcohol 0.08 H (0-0.07) % All other labs normal.
[2020-05-16] MEDS ORDERED: ZIPRASIDONE MESYLATE 20 MG VIAL IM PRN (11:23)
[2020-05-16] MEDS ORDERED: MELATONIN 5 MG TAB PO PRN (11:23)
[2020-05-16] MEDS: risperiDONE 0.25 MG TAB PO SCH ×2 (14:55→22:59)
[2020-05-16 20:08] LABS: Basophils % (Auto) 0.5 % (0.0-1.8); Eosinophils # (Auto) 0.1 K/mm3 (0.0-0.4); Eosinophils % (Auto) 1.4 % (0.0-4.3); Hematocrit 48.1 % (35.5-45.6); Hemoglobin 15.5 gm/dl (11.8-15.2); Lymphocytes # (Auto) 1.6 K/mm3 (1.2-5.4); Mean Corpuscular HGB Conc 32 % (32-34); Mean Corpuscular Volume 76 fl (84-94); Monocytes # (Auto) 0.5 K/mm3 (0.0-0.8); Monocytes % (Auto) 10.8 % (0.0-7.3); Platelet Count 187 K/mm3 (140-440); Red Blood Count 6.32 M/mm3 (3.65-5.03); Red Cell Distribution Width 16.7 % (13.2-15.2)
[2020-05-16 20:26] LABS: Alanine Aminotransferase 65 units/L (7-56); Albumin 3.7 g/dL (3.9-5); BUN/Creatinine Ratio 15; Blood Urea Nitrogen 17 mg/dL (9-20); Calcium 9.1 mg/dL (8.4-10.2); Chol/HDL Ratio 6.12 %; HDL Cholesterol 31 mg/dL (40-59); Hemolysis Index 19; LDL Cholesterol,Direct TNR mg/dL (50-130)
[2020-05-16 21:55] VITALS: BP 135/69
[2020-05-16] MEDS ORDERED: traZODone 50 MG TAB PO SCH (22:00)
== END 2020-05-16 23:11 | DRG 885 ==
LOC: EEVIPCON 13:54 → ED 13:54 → 3A 05-16 17:12 → 5A 05-16 20:10
PROVIDERS: ADMIT Psychiatry & Neurology Psychiatry; ATTEND Psychiatry & Neurology Psychiatry
DX: F25.9 Schizoaffective disorder, unspecified (principal); R45.851 Suicidal ideations; F14.10 Cocaine abuse, uncomplicated; Z20.828 Contact with and (suspected) exposure to other viral communicable diseases
CPT/HCPCS: 36415; 80053; 80061; 80307; 80320; 81001; 83036; 85025; G0378; G0480; U0003-CS